=== PATIENT | female | born 1985 | race Two or more races ===

== ENCOUNTER 2024-09-17 17:58 | Inpatient (IN) | payer OTHER ==
[~2024-09-17] VITALS: Ht 165.1 cm; Wt 54.4 kg
--- NOTE | 2024-09-17 18:13 | NUR ---
SE RECIBE A PTE ALERTA Y ORIENTADA X3 REFIERE VENIR A VANGIE EN AMBULANCIA POR DIFICULTAD RESPIRATORIA, AL MOMENTO LA MISMA SE COMUNICA SIN DIFICULTAD EN ORACIONES COMPLETAS Y NO MUESTRA DISTRESS RESPIRATORIO. SE MIDEN S/V Y SE UBICA.
[2024-09-17] MEDS ORDERED: LEVALBUTEROL HCL 1.25 MG/3 ML SOLUTION IH ONE (18:15)
[2024-09-17] MEDS ORDERED: ONDANSETRON HCL 4 MG in 0.9 % SODIUM CHLORIDE 50 ML IV PRN (20:45)
[2024-09-17] MEDS ORDERED: 0.9 % SODIUM CHLORIDE 1,000 ML IV SCH (20:45)
[2024-09-17] MEDS ORDERED: MORPHINE SULFATE 4 MG/ML VIAL IV PRN (20:45)
[2024-09-17] MEDS ORDERED: FUROsemide 20 MG/2 ML VIAL IV SCH (21:00)
[2024-09-17] MEDS ORDERED: LEVALBUTEROL HCL 0.63 MG/3 ML SOLUTION IH ONE (21:01)
[2024-09-17] MEDS ORDERED: IPRATROPIUM BROMIDE 0.5 MG/2.5 ML AMPUL.NEB IH ONE (21:01)
[2024-09-17 21:28] LABS: ABG PH 7.519 (7.35-7.45); ABG PO2 135.2 mmHg (80-100); ABG pCO2 32.9 mmHg (35-45); BASE EXCESS 3.8 mmol/l; BICARBONATE 26.2 mmol/l (23-25); SaO2 99.4 %; Tco2 27.2 mmol/l
[2024-09-17 21:35] LABS: allen test SATISFACTORY; mode NASAL CANNULA; o2 32 %; puncture site RADIAL RIGHT
--- NOTE | 2024-09-17 21:55 | NUR ---
SE ORIENTA A PTE SOBRE TX MEDICO Y LA MISMA REFIERE ENTENDER. SE CANALIZA A PTE EN BRAZO DERECHO CON ANIO #20, SE RECOLECTAN MUESTRAS DE LAB Y SE ADMINSITRAN MEDICAMENTOS FRANCINE ORDEN MEDICA.
[2024-09-17 22:02] LABS: HEMATOCRIT 23.9 % (36.0-45.00); MEAN CELL VOLUME 107.6 fL (80.00-100.00); MEAN CORPUSCULAR HGB CONC 33.5 g/dl (32.0-36.0); RED BLOOD COUNT 2.22 M/uL (4.00-6.00)
[2024-09-17 22:04] LABS: RED CELL DISTRIBUTION WIDTH 25.9 % (11.5-14.5)
[2024-09-17 22:05] LABS: PLATELET COUNT 71 K/uL (150-450)
[2024-09-17 22:16] LABS: CALCIUM 8.3 mg/dL (8.5-10.1); CREATININE SERUM 0.44 mg/dL (0.55-1.02); GFR 158.37; GLOBULINA 7.3 G/DL (2.4-3.5); TOTAL PROTEIN 8.3 gm/dL (6.4-8.2)
[2024-09-17 22:18] LABS: BILIRUBIN,CONJUGATED 9.36 mg/dL (0.0-0.2); BILIRUBIN,UNCONJUGATED 2.72 mg/dL (0.0-0.6)
[2024-09-17 22:20] LABS: BILIRUBIN TOTAL 12.08 mg/dL (0.3-1.2)
[2024-09-17 22:22] LABS: BILIRUBIN TOTAL 11.67 mg/dL (0.3-1.2)
[2024-09-17 22:27] LABS: POTASSIUM 2.92 mEq/L (3.5-5.1)
[2024-09-17 22:28] LABS: INR 3.04
[2024-09-17 22:35] LABS: PROTHROMBIN TIME 30.5 SECONDS (9.0-11.5)
[2024-09-17 23:12] LABS: PH,URINE 6.5 (5.0-8.0); URINE APPEARANCE Cloudy; URINE BILIRRUBIN Large (NEGATIVE); URINE BLOOD Negative; URINE COLOR Dark Yellow; URINE GLUCOSE Negative (NEGATIVE); URINE KETONE Trace (NEGATIVE); URINE LEUKOCYTE Trace; URINE NITRATE Positive; URINE PROTEIN Trace (NEGATIVE); URINE UROBILINOGEN 0.2 E.U./dl
[2024-09-17 23:16] LABS: URINE BACTERIA 12.2 uL (0.0-1933); URINE EPITHELIAL CELLS 21.6 uL (0.0-38.8); URINE RBC 11.9 uL (0.0-20.8)
[2024-09-17] MEDS ORDERED: POTASSIUM CHLORIDE IN WATER 100 ML IV ONE (23:30)
[2024-09-17 23:56] LABS: URINE CAST 0.58 uL (0.0-1.40); URINE WBC 1.4 uL (0.0-23.2)
[2024-09-18] MEDS ORDERED: LEVALBUTEROL HCL 0.63 MG/3 ML SOLUTION IH SCH
[2024-09-18] MEDS ORDERED: IPRATROPIUM BROMIDE 0.5 MG/2.5 ML AMPUL.NEB IH SCH
[2024-09-18] MEDS ORDERED: GUAIFENESIN 200 MG/10 ML BLIST.PACK PO SCH
[2024-09-18] MEDS ORDERED: GUAIFENESIN 200 MG/10 ML BLIST.PACK PO ONE (00:33)
[2024-09-18 01:33] VITALS: BP 101/63; O2SAT 98
[2024-09-18 03:29] VITALS: BP 100/61; O2SAT 96
[2024-09-18 08:43] VITALS: BP 105/68
[2024-09-18] MEDS ORDERED: POLYETHYLENE GLYCOL 3350 17 GM BLIST.PACK PO SCH (09:00)
[2024-09-18] MEDS ORDERED: LACTULOSE 20 G/30 ML BLIST.PACK PO STA (12:46)
[2024-09-18 16:50] VITALS: BP 110/68
[2024-09-18] MEDS ORDERED: PHYTONADIONE 10 MG/ML AMPUL SUBCUTANEO SCH (17:00)
[2024-09-18] MEDS ORDERED: DEXAMETHASONE SODIUM PHOSPHATE 4 MG/ML VIAL IV SCH (17:00)
[2024-09-18] MEDS ORDERED: ALBUMIN HUMAN-25 0.25GM/ML (50ML) VIAL IV SCH (17:00)
[2024-09-18] MEDS ORDERED: HYDROCODONE/CHLORPHEN P-STIREX 5 ML ML PO SCH (21:00)
[2024-09-19 01:10] VITALS: BP 108/71; O2SAT 95
[2024-09-19 08:13] VITALS: BP 105/68
[2024-09-19] MEDS ORDERED: LACTULOSE 20 G/30 ML BLIST.PACK PO SCH (09:00)
[2024-09-19] MEDS ORDERED: MORPHINE SULFATE 4 MG/ML CARTRIDGE IV PRN (15:00)
[2024-09-19 15:55] LABS: HEMATOCRIT 26.7 % (36.0-45.00); MEAN CELL VOLUME 104.3 fL (80.00-100.00); MEAN CORPUSCULAR HGB CONC 34.2 g/dl (32.0-36.0); RED BLOOD COUNT 2.56 M/uL (4.00-6.00)
[2024-09-19 16:00] LABS: HEMOGLOBIN 9.1 g/dL (12.0-15.00); MEAN CORPUSCULAR HEMOGLOBIN 35.5 pg (27.00-32.0); PLATELET COUNT 53 K/uL (150-450); RED CELL DISTRIBUTION WIDTH 25.5 % (11.5-14.5)
[2024-09-19 16:08] LABS: CALCIUM 8.3 mg/dL (8.5-10.1); CREATININE SERUM 0.42 mg/dL (0.55-1.02); GFR 167.1
[2024-09-19 16:11] LABS: POTASSIUM 2.96 mEq/L (3.5-5.1)
[2024-09-19 16:58] VITALS: BP 93/54
[2024-09-19] MEDS ORDERED: PIPERACILLIN/TAZOBACTAM SODIUM 3.375 GM in DEXTROSE 5 % IN WATER 100 ML IV SCH (18:00)
[2024-09-19] MEDS ORDERED: POTASSIUM CHLORIDE IN WATER 40 MEQ/100 ML PIGGYBAG IV NR (19:00)
[2024-09-19 20:27] LABS: PH,URINE 5.5 (5.0-8.0); URINE APPEARANCE Cloudy; URINE BILIRRUBIN Large (NEGATIVE); URINE BLOOD Small; URINE COLOR Dark Yellow; URINE GLUCOSE Negative (NEGATIVE); URINE KETONE Trace (NEGATIVE); URINE LEUKOCYTE Large; URINE NITRATE Positive; URINE PROTEIN 30 (NEGATIVE)
[2024-09-19 20:31] LABS: URINE EPITHELIAL CELLS 15.3 uL (0.0-38.8); URINE RBC 42.8 uL (0.0-20.8); URINE WBC 840.2 uL (0.0-23.2)
[2024-09-19] MEDS ORDERED: CLONAZEPAM 0.5 MG TABLET PO SCH (21:00)
[2024-09-19 21:01] LABS: URINE BACTERIA > 9821.5 uL (0.0-1933)
[2024-09-21 02:31] VITALS: BP 111/72; O2SAT 93
[2024-09-21 09:11] VITALS: BP 108/74
[2024-09-21 10:31] LABS: HEMATOCRIT 30.1 % (36.0-45.00); HEMOGLOBIN 10.4 g/dL (12.0-15.00); MEAN CELL VOLUME 102.3 fL (80.00-100.00); MEAN CORPUSCULAR HEMOGLOBIN 35.3 pg (27.00-32.0); MEAN CORPUSCULAR HGB CONC 34.4 g/dl (32.0-36.0); RED BLOOD COUNT 2.94 M/uL (4.00-6.00); RED CELL DISTRIBUTION WIDTH 23.3 % (11.5-14.5)
[2024-09-21 10:34] LABS: PLATELET COUNT 46 K/uL (150-450)
[2024-09-21 11:39] LABS: ALBUMIN 2.2 gm/dL (3.4-5.0); CALCIUM 8.5 mg/dL (8.5-10.1); CREATININE SERUM 0.45 mg/dL (0.55-1.02); GFR 154.32; GLOBULINA 5.7 G/DL (2.4-3.5); POTASSIUM 3.04 mEq/L (3.5-5.1); TOTAL PROTEIN 7.9 gm/dL (6.4-8.2)
[2024-09-21 11:50] LABS: BILIRUBIN TOTAL 23.23 mg/dL (0.3-1.2)
[2024-09-21] MEDS ORDERED: POTASSIUM CHLORIDE 20MEQ/100ML H2O PB IV NR (14:15)
[2024-09-21 18:20] VITALS: BP 110/72; O2SAT 95
[2024-09-22 02:49] VITALS: BP 111/69; O2SAT 93
[2024-09-22 06:59] LABS: HEMATOCRIT 28.6 % (36.0-45.00); HEMOGLOBIN 10.1 g/dL (12.0-15.00); MEAN CELL VOLUME 103.8 fL (80.00-100.00); MEAN CORPUSCULAR HEMOGLOBIN 36.5 pg (27.00-32.0); MEAN CORPUSCULAR HGB CONC 35.2 g/dl (32.0-36.0); RED BLOOD COUNT 2.76 M/uL (4.00-6.00)
[2024-09-22 07:00] LABS: PLATELET COUNT 40 K/uL (150-450)
[2024-09-22 07:41] LABS: MANUAL PLATELET COUNT 52
[2024-09-22 09:57] VITALS: BP 112/72; O2SAT 99
[2024-09-22 10:19] LABS: ABG PH 7.465 (7.35-7.45); ABG PO2 64.9 mmHg (80-100); ABG pCO2 42.7 mmHg (35-45); BASE EXCESS 5.6 mmol/l; Tco2 31.3 mmol/l
[2024-09-22 11:56] LABS: allen test SATISFACTORY; mode ROOM AIR; o2 21 %; puncture site RADIAL RIGHT
[2024-09-22 18:30] VITALS: BP 103/70
[2024-09-23 00:44] VITALS: BP 109/71; O2SAT 96
[2024-09-23 06:47] LABS: CALCIUM 8.1 mg/dL (8.5-10.1); CREATININE SERUM 0.44 mg/dL (0.55-1.02); GFR 158.37; POTASSIUM 3.07 mEq/L (3.5-5.1)
[2024-09-23 06:48] LABS: HEMATOCRIT 26.9 % (36.0-45.00); HEMOGLOBIN 9.9 g/dL (12.0-15.00); MEAN CELL VOLUME 106.9 fL (80.00-100.00); MEAN CORPUSCULAR HEMOGLOBIN 39.4 pg (27.00-32.0); MEAN CORPUSCULAR HGB CONC 36.8 g/dl (32.0-36.0); RED BLOOD COUNT 2.51 M/uL (4.00-6.00); RED CELL DISTRIBUTION WIDTH 24.3 % (11.5-14.5)
[2024-09-23 06:51] LABS: PLATELET COUNT 34 K/uL (150-450)
[2024-09-23 10:05] VITALS: BP 109/69; O2SAT 97
== END 2024-09-23 17:16 | disposition home or self-care (01) | DRG 186 ==
LOC: MEDJ → ER → MEDJ 20:25 → ER 09-18 00:31 → MEDJ 09-18 00:39
PROVIDERS: General Practice; Internal Medicine Infectious Disease; ADMIT Student in an Organized Health Care Education/Training Program; ATTEND Student in an Organized Health Care Education/Training Program
PROC: BW24ZZZ Computerized Tomography (CT Scan) of Chest and Abdomen (ICD-10-PCS; principal; 2024-09-17)
PROC: 30233N1 Transfusion of Nonautologous Red Blood Cells into Peripheral Vein, Percutaneous Approach (ICD-10-PCS; 2024-09-18)
DX: J90 Pleural effusion, not elsewhere classified (principal); A41.9 Sepsis, unspecified organism; J18.9 Pneumonia, unspecified organism; D84.9 Immunodeficiency, unspecified; C78.7 Secondary malignant neoplasm of liver and intrahepatic bile duct; C79.51 Secondary malignant neoplasm of bone; C78.00 Secondary malignant neoplasm of unspecified lung; R17 Unspecified jaundice; C80.1 Malignant (primary) neoplasm, unspecified; C50.919 Malignant neoplasm of unspecified site of unspecified female breast; D63.0 Anemia in neoplastic disease

== ENCOUNTER 2024-09-29 13:55 | Inpatient (IN) | payer OTHER ==
[~2024-09-29] VITALS: Ht 152.4 cm; Wt 41.7 kg
[2024-09-29] MEDS ORDERED: 0.9 % SODIUM CHLORIDE 1,000 ML IV STA (14:06)
--- NOTE | 2024-09-29 14:29 | NUR ---
PACIENTE ALERTA Y ORIENTADA EN TIEMPO, LUGAR Y PERSONA, EN AMBULANCIA Y EN COMPANIA DE FAMILIAR QUIEN REFIERE QUE TRAEN A PACIENTE POR HIPOTENCION. SE LE MONITOREAN S/V, SE LE REALIZA DXT, SE UBICA PACIENTE EN CHEST PAIN, SE LE CANALIZA Y SE LE COLECTAN MUESTRAS DE LABORATORI BAJO MEDIDAS ASEPTICAS, SE LE REALIZA EKG, SE LE INSERTA SONDA URINARIA, SE MANTIENE BAJO OBSERVACION POR CAMBIOS EN MARLOW CONDICION.
[2024-09-29] MEDS ORDERED: DEXTROSE 50 % IN WATER 0.5 G/ML VIAL IV ONE ×2 (14:45→18:45)
[2024-09-29 14:49] LABS: COVID-19 AG NEGATIVE (NEGATIVE)
[2024-09-29 14:50] LABS: INFLUENZA A AG NEGATIVE (NEGATIVE)
[2024-09-29 15:05] LABS: PH,URINE 5.5 (5.0-8.0); URINE APPEARANCE Turbid; URINE BILIRRUBIN Large (NEGATIVE); URINE BLOOD Small; URINE COLOR Dark Yellow; URINE GLUCOSE Negative (NEGATIVE); URINE KETONE Negative (NEGATIVE); URINE LEUKOCYTE Moderate; URINE NITRATE Positive; URINE PROTEIN 30 (NEGATIVE); URINE UROBILINOGEN 0.2 E.U./dl
[2024-09-29 15:08] LABS: URINE BACTERIA 570.3 uL (0.0-1933); URINE CAST 2.35 uL (0.0-1.40); URINE EPITHELIAL CELLS 107.6 uL (0.0-38.8); URINE RBC 161.8 uL (0.0-20.8); URINE WBC 4.1 uL (0.0-23.2)
[2024-09-29 15:18] LABS: INR 1.82
--- NOTE | 2024-09-29 15:24 | NUR ---
DEXTRO EN 109MG/DL A LAS 3:10PM
[2024-09-29 15:25] LABS: ALBUMIN 1.2 gm/dL (3.4-5.0); CALCIUM 7.5 mg/dL (8.5-10.1); CREATININE SERUM 1.86 mg/dL (0.55-1.02); GFR 30.01; GLOBULINA 5.8 G/DL (2.4-3.5); POTASSIUM 5.13 mEq/L (3.5-5.1)
[2024-09-29 15:28] LABS: MEAN CELL VOLUME 111.6 fL (80.00-100.00); MEAN CORPUSCULAR HGB CONC 35.4 g/dl (32.0-36.0); RED BLOOD COUNT 2.08 M/uL (4.00-6.00); RED CELL DISTRIBUTION WIDTH 24.5 % (11.5-14.5)
[2024-09-29 15:29] LABS: BILIRUBIN TOTAL 24.09 mg/dL (0.3-1.2)
[2024-09-29] MEDS ORDERED: DEXTROSE 5 % AND 0.9 % NACL 1,000 ML IV SCH (15:30)
[2024-09-29 15:36] LABS: PARTIAL THROMBOPLASTIN TIME 51.1 SECONDS (22.0-34.0)
[2024-09-29 15:38] LABS: URINE CRYSTALS MODERATE /HPF
[2024-09-29 16:07] LABS: MEAN CORPUSCULAR HEMOGLOBIN 39.4 pg (27.00-32.0)
[2024-09-29 16:08] LABS: HEMOGLOBIN 8.2 g/dL (12.0-15.00)
[2024-09-29 16:15] LABS: HEMATOCRIT 23.3 % (36.0-45.00)
[2024-09-29 16:18] LABS: PLATELET COUNT 26 K/uL (150-450)
[2024-09-29] MEDS ORDERED: OCTREOTIDE ACETATE 0.05MG/ML (50MCG/ML) AMPUL ONE (18:17)
[2024-09-29] MEDS ORDERED: CEFTRIAXONE SODIUM 2,000 MG in 0.9 % SODIUM CHLORIDE 100 ML IV SCH (18:24)
[2024-09-29] MEDS ORDERED: PANTOPRAZOLE SODIUM 40 MG/VIAL VIAL IV ONE (18:30)
[2024-09-29] MEDS ORDERED: OCTREOTIDE ACETATE 0.05MG/ML (50MCG/ML) AMPUL IV ONE (18:30)
[2024-09-29] MEDS ORDERED: 0.9 % SODIUM CHLORIDE 1,000 ML IV SCH (18:30)
[2024-09-29] MEDS ORDERED: 0.9 % SODIUM CHLORIDE 1,000 ML IV ONE (18:30)
[2024-09-29] MEDS ORDERED: PANTOPRAZOLE SODIUM 80 MG in 0.9 % SODIUM CHLORIDE 100 ML IV SCH (18:30)
[2024-09-29] MEDS ORDERED: OCTREOTIDE ACETATE 1,250 MCG in 0.9 % SODIUM CHLORIDE 250 ML IV SCH (18:30)
[2024-09-29] MEDS ORDERED: ALBUMIN HUMAN-25 0.25GM/ML (50ML) VIAL IV SCH (18:38)
[2024-09-29] MEDS ORDERED: ONDANSETRON HCL 4 MG in 0.9 % SODIUM CHLORIDE 50 ML IV PRN (18:45)
[2024-09-29 20:19] LABS: ob POSITIVE (NEGATIVE)
[2024-09-29 22:10] VITALS: BP 78/39
[2024-09-29] MEDS ORDERED: NOREPINEPHRINE BITARTRATE 1 MG/ML AMPUL IV ONE (22:18)
[2024-09-29] MEDS ORDERED: NOREPINEPHRINE BITARTRATE 8 MG in DEXTROSE 5 % IN WATER 250 ML IV SCH (23:00)
[2024-09-29 23:26] VITALS: BP 85/38; O2SAT 100
[2024-09-30] VITALS (10 sets, daily range): BP systolic 82–95; BP diastolic 40–50; O2SAT 100
[2024-09-30] MEDS ORDERED: MORPHINE SULFATE 2 MG/ML SYRINGE IV STA (07:26)
[2024-09-30 07:37] LABS: MAGNESIUM 2.5 mg/dL (1.8-2.4)
[2024-09-30 07:39] LABS: C-REACTIVE PROTEIN 18.9 MG/DL (0.00-0.29)
[2024-09-30 07:59] LABS: ALBUMIN 1.5 gm/dL (3.4-5.0)
[2024-09-30 08:21] LABS: BILIRUBIN,UNCONJUGATED 4.41 mg/dL (0.0-0.6)
[2024-09-30 08:32] LABS: BILIRUBIN TOTAL 24.53 mg/dL (0.3-1.2); BILIRUBIN,CONJUGATED 20.12 mg/dL (0.0-0.2)
[2024-09-30] MEDS ORDERED: ORPHENADRINE CITRATE 30 MG/ML AMPUL IV SCH (09:00)
[2024-09-30] MEDS ORDERED: fentaNYL 25 MCG PATCH.TD72 TD STA (10:35)
[2024-09-30] MEDS ORDERED: MORPHINE SULFATE 4 MG/ML VIAL IV SCH (14:04)
[2024-09-30] MEDS ORDERED: MORPHINE SULFATE 4 MG/ML VIAL IV STA (14:04)
[2024-09-30] MEDS ORDERED: MORPHINE SULFATE 4 MG/ML CARTRIDGE IV PRN (15:15)
[2024-10-01] VITALS: BP 100/51; O2SAT 99
[2024-10-01 16:39] VITALS: BP 100/54; O2SAT 98
[2024-10-01] MEDS ORDERED: ORPHENADRINE CITRATE 30 MG/ML AMPUL ONE (19:22)
[2024-10-01 20:44] VITALS: BP 101/51; O2SAT 98
[2024-10-01 22:30] VITALS: BP 101/48; O2SAT 99
[2024-10-01 23:00] VITALS: BP 106/53; O2SAT 97
[2024-10-02] VITALS (15 sets, daily range): BP systolic 92–141; BP diastolic 44–81; O2SAT 95–99
[2024-10-02] MEDS ORDERED: CHLORHEXIDINE GLUCONATE 120 ML BOTTLE TOP ONE (14:42)
[2024-10-03] VITALS (9 sets, daily range): BP systolic 93–100; BP diastolic 50–63; O2SAT 95–99
[2024-10-03] MEDS ORDERED: PANTOPRAZOLE SODIUM 40 MG/VIAL VIAL IV ONE (05:45)
[2024-10-03] MEDS ORDERED: fentaNYL 50 MCG PATCH.TD72 TD SCH (09:00)
[2024-10-03] MEDS ORDERED: OCTREOTIDE ACETATE 1,250 MCG in 0.9 % SODIUM CHLORIDE 250 ML IV SCH (11:00)
[2024-10-03] MEDS ORDERED: PANTOPRAZOLE SODIUM 40 MG/VIAL VIAL IV NR (11:00)
[2024-10-03 13:01] LABS: HEMATOCRIT 24.8 % (36.0-45.00); MEAN CELL VOLUME 102.2 fL (80.00-100.00); MEAN CORPUSCULAR HGB CONC 34.4 g/dl (32.0-36.0); RED BLOOD COUNT 2.43 M/uL (4.00-6.00); RED CELL DISTRIBUTION WIDTH 23.1 % (11.5-14.5)
[2024-10-03 13:15] LABS: CALCIUM 7.5 mg/dL (8.5-10.1); CREATININE SERUM 2.66 mg/dL (0.55-1.02); GFR 19.86; POTASSIUM 5.5 mEq/L (3.5-5.1)
[2024-10-03 13:51] LABS: MEAN CORPUSCULAR HEMOGLOBIN 34.9 pg (27.00-32.0)
[2024-10-03 13:52] LABS: HEMOGLOBIN 8.5 g/dL (12.0-15.00); PLATELET COUNT 23 K/uL (150-450)
[2024-10-04] VITALS (18 sets, daily range): BP systolic 82–139; BP diastolic 41–83; O2SAT 83–100
[2024-10-04] MEDS ORDERED: PANTOPRAZOLE SODIUM 40 MG/VIAL VIAL IV SCH (09:00)
[2024-10-04] MEDS ORDERED: SODIUM CHLORIDE 0.9% IV SCH (11:00)
[2024-10-04] MEDS ORDERED: MORPHINE SULFATE IV SCH (11:00)
[2024-10-05 00:16] VITALS: BP 91/53; O2SAT 100
[2024-10-05 00:53] VITALS: O2SAT 100
[2024-10-05 05:43] VITALS: O2SAT 100
[2024-10-05 08:00] VITALS: BP 82/46; O2SAT 100
[2024-10-05 09:19] VITALS: O2SAT 97
[2024-10-05 09:44] VITALS: O2SAT 0
== END 2024-10-05 11:12 | disposition expired | DRG 872 ==
LOC: ER 13:55 → ICU-2 19:51 → ICU 09-30 17:04 → ICU-2 09-30 17:16 → SEC-K 09-30 21:45 → ICU-2 10-01 18:02 → SEC-K 10-01 18:05 → MEDJ 10-02 16:52
PROVIDERS: Emergency Medicine; General Practice; ADMIT Internal Medicine; ATTEND Internal Medicine
PROC: 02HV33Z Insertion of Infusion Device into Superior Vena Cava, Percutaneous Approach (ICD-10-PCS; principal; 2024-09-30)
PROC: 30233R1 Transfusion of Nonautologous Platelets into Peripheral Vein, Percutaneous Approach (ICD-10-PCS; 2024-09-30)
PROC: 30233N1 Transfusion of Nonautologous Red Blood Cells into Peripheral Vein, Percutaneous Approach (ICD-10-PCS; 2024-09-30)
PROC: 4A12X4Z Monitoring of Cardiac Electrical Activity, External Approach (ICD-10-PCS; 2024-10-02)
DX: A41.9 Sepsis, unspecified organism (principal); K92.2 Gastrointestinal hemorrhage, unspecified; C79.51 Secondary malignant neoplasm of bone; C78.00 Secondary malignant neoplasm of unspecified lung; N17.8 Other acute kidney failure; N39.0 Urinary tract infection, site not specified; R17 Unspecified jaundice; C78.7 Secondary malignant neoplasm of liver and intrahepatic bile duct; C50.919 Malignant neoplasm of unspecified site of unspecified female breast; D63.0 Anemia in neoplastic disease; B96.20 Unspecified Escherichia coli [E. coli] as the cause of diseases classified elsewhere; D69.6 Thrombocytopenia, unspecified; I95.9 Hypotension, unspecified; Z66 Do not resuscitate; R57.1 Hypovolemic shock